=== PATIENT | female | born 1960 ===

== ENCOUNTER 2021-06-08 12:18 | Outpatient (CLI) | payer OTHER | END 2021-06-08 15:54 | disposition home or self-care (01) | LOC: SONOGRAMA 12:18 | PROVIDERS: ATTEND Pathology Anatomic Pathology & Clinical Pathology | DX: E04.2 Nontoxic multinodular goiter (principal) ==

== ENCOUNTER 2022-07-09 08:34 | Outpatient (CLI) | payer OTHER | END 2022-07-09 08:36 | disposition home or self-care (01) | LOC: SONOGRAMA 08:34 | PROVIDERS: ATTEND Pathology Anatomic Pathology | DX: D34 Benign neoplasm of thyroid gland (principal); E04.2 Nontoxic multinodular goiter ==

== ENCOUNTER 2022-08-22 05:34 | Day surgery (SDC) | payer OTHER ==
[~2022-08-22] VITALS: Ht 172.7 cm; Wt 88.9 kg
[~2022-08-22 05:34] MED LIST: CRESTOR10 MG PO; LEVOTHYROXINE25 MCG PO
[2022-08-22] MEDS ORDERED: PERCOCET 5-3251 EACH PO (09:22)
== END 2022-08-22 12:50 | disposition home or self-care (01) ==
LOC: CIR.AMB 05:34
PROVIDERS: ATTEND Surgery
DX: C73 Malignant neoplasm of thyroid gland (principal); Z20.822 Contact with and (suspected) exposure to COVID-19; E03.9 Hypothyroidism, unspecified; I10 Essential (primary) hypertension